=== PATIENT | female | born 1995 | race Two or more races ===

== ENCOUNTER 2023-04-18 10:10 | Emergency (ER) | payer OTHER ==
[~2023-04-18] VITALS: Ht 162.6 cm; Wt 54.4 kg
[2023-04-18] MEDS ORDERED: PNV-DHA SOFTGE1 EACH (10:36)
[2023-04-18 11:02] LABS: HEMATOCRIT 37.5 % (36.0-45.00); HEMOGLOBIN 12.8 g/dL (12.0-15.00); MEAN CELL VOLUME 91.4 fL (80.00-100.00); MEAN CORPUSCULAR HEMOGLOBIN 31.1 pg (27.00-32.0); RED CELL DISTRIBUTION WIDTH 12.9 % (11.5-14.5)
[2023-04-18 11:02] LABS: PH,URINE 5.5 (5.0-8.0); URINE APPEARANCE Cloudy; URINE BILIRRUBIN Negative (NEGATIVE); URINE BLOOD Negative; URINE COLOR Yellow; URINE GLUCOSE Negative (NEGATIVE); URINE LEUKOCYTE Small; URINE NITRATE Negative; URINE PROTEIN Trace (NEGATIVE)
[2023-04-18 11:03] LABS: URINE EPITHELIAL CELLS 40.9 uL (0.0-38.8); URINE RBC 26.7 uL (0.0-20.8); URINE WBC 218.7 uL (0.0-23.2)
[2023-04-18 11:10] LABS: PLATELET COUNT 126 K/uL (150-450)
[2023-04-18] MEDS ORDERED: BUTALB-ACETAMI1 EAC2 PO (12:18)
[2023-04-18] MEDS ORDERED: MACRODANTIN100 M1 PO (12:18)
[2023-04-18] MEDS ORDERED: ONDANSETRON ODT8 MG PO (12:19)
== END 2023-04-18 12:22 | disposition home or self-care (01) ==
LOC: ER 10:11
PROVIDERS: General Practice
DX: O23.41 Unspecified infection of urinary tract in pregnancy, first trimester (principal); N39.0 Urinary tract infection, site not specified; Z3A.08 8 weeks gestation of pregnancy; R51.9 Headache, unspecified; Z20.822 Contact with and (suspected) exposure to COVID-19; Z88.8 Allergy status to other drugs, medicaments and biological substances

== ENCOUNTER 2023-05-21 15:01 | Outpatient (CLI) | payer OTHER ==
[~2023-05-21 15:01] MED LIST: BUTALB-ACETAMI1 EAC2 PO; MACRODANTIN100 M1 PO; ONDANSETRON ODT8 MG PO; PNV-DHA SOFTGE1 EACH
== END 2023-05-21 15:06 | disposition home or self-care (01) ==
LOC: PRENATAL 15:01
PROVIDERS: ATTEND Obstetrics & Gynecology Maternal & Fetal Medicine
DX: O36.80X0 Pregnancy with inconclusive fetal viability, not applicable or unspecified (principal); Z36.82 Encounter for antenatal screening for nuchal translucency; Z36.9 Encounter for antenatal screening, unspecified; Z14.8 Genetic carrier of other disease; Z3A.12 12 weeks gestation of pregnancy

== ENCOUNTER 2023-07-11 09:02 | Outpatient (CLI) | payer OTHER | END 2023-07-11 09:04 | disposition home or self-care (01) | LOC: PRENATAL 09:02 | PROVIDERS: ATTEND Obstetrics & Gynecology Maternal & Fetal Medicine | DX: O35.3XX0 Maternal care for (suspected) damage to fetus from viral disease in mother, not applicable or unspecified (principal); O44.00 Complete placenta previa NOS or without hemorrhage, unspecified trimester; Z3A.19 19 weeks gestation of pregnancy ==

== ENCOUNTER 2023-11-12 09:10 | Outpatient (CLI) | payer OTHER ==
[~2023-11-12] VITALS: Ht 154.9 cm; Wt 66.7 kg
[2023-11-12 10:08] LABS: PH,URINE 6.5 (5.0-8.0); URINE APPEARANCE Clear; URINE BILIRRUBIN Negative (NEGATIVE); URINE BLOOD Negative; URINE COLOR Dark Yellow; URINE GLUCOSE Negative (NEGATIVE); URINE LEUKOCYTE Moderate; URINE NITRATE Negative; URINE PROTEIN Trace (NEGATIVE)
[2023-11-12 10:12] LABS: URINE EPITHELIAL CELLS 22.8 uL (0.0-38.8); URINE RBC 8.2 uL (0.0-20.8); URINE WBC 139.5 uL (0.0-23.2)
[2023-11-12 10:14] LABS: HEMATOCRIT 36.6 % (36.0-45.00); HEMOGLOBIN 12.7 g/dL (12.0-15.00); MEAN CELL VOLUME 96.3 fL (80.00-100.00); MEAN CORPUSCULAR HEMOGLOBIN 33.5 pg (27.00-32.0); MEAN CORPUSCULAR HGB CONC 34.8 g/dl (32.0-36.0)
[2023-11-12 10:22] LABS: PLATELET COUNT 105 K/uL (150-450)
== END 2023-11-12 13:43 | disposition home or self-care (01) ==
LOC: OBS/DEL 09:10
PROVIDERS: ATTEND Obstetrics & Gynecology
DX: O47.03 False labor before 37 completed weeks of gestation, third trimester (principal); Z3A.34 34 weeks gestation of pregnancy